=== PATIENT | female | born 1990 | race Caucasian/White ===

== ENCOUNTER 2020-11-15 00:55 | Emergency (ER) | payer OTHER ==
[2020-11-15 01:54] LABS: BASOPHIL 0.6 % (0-2); EOSINOPHIL 2.8 % (0-5); HGB 9.8 g/dl (12.5-16.0); LYMPHOCYTE 29.2 % (15-48); MCH 23.7 pg (25.0-31.0); MCHC 30.6 g/dL (32.0-36.0); MCV 77.5 fL (78.0-100.0); MONOCYTE 7.6 % (0-12); MPV 8.9 fL (6.0-9.5); NEUTROPHIL 59.4 % (41-80); NRBC 0; PLT 298 K/uL (150-400); RBC 4.13 M/uL (4.20-5.40); RDW 15.2 % (11.5-14.0); WBC 5.4 K/uL (4.0-10.5)
[2020-11-15 02:10] LABS: ALBUMIN 3.9 g/dL (3.4-5.0); ALKALINE PHOSHATASE 56 U/L (46-116); ALT 17 U/L (14-59); AST 15 U/L (15-37); BILIRUBIN - TOTAL 0.3 mg/dL (0.2-1.0); BUN 14 mg/dL (7-18); BUN/CREAT RATIO (CALC) 16.1 RATIO; CHLORIDE 103 mmol/L (98-107); CO2 (BICARBONATE) 28 mmol/L (21-32); CREATININE 0.87 mg/dL (0.51-0.95); GLOBULIN (CALCULATION) 3.7 g/dL; GLUCOSE 92 mg/dL (74-106); POTASSIUM 3.5 mmol/L (3.5-5.1); TOTAL PROTEIN 7.6 g/dL (6.4-8.2)
[2020-11-15 02:43] LABS: BILIRUBIN NEGATIVE (NEGATIVE); BLOOD NEGATIVE Ery/uL (NEGATIVE); CLARITY CLEAR (CLEAR); COLOR YELLOW (YELLOW); GLUCOSE (U) NORMAL (NORMAL); LEUKOCYTES NEGATIVE Leu/uL (NEGATIVE); NITRITE NEGATIVE (NEGATIVE); PROTEIN NEGATIVE (NEGATIVE); SPECIFIC GRAVITY 1.025 (1.001-1.030); UROBILINOGEN 0.2 mg/dL (0.2-1.0)
[2020-11-15 02:46] LABS: AMPHETAMINES POSITIVE (NEGATIVE); BARBITURATES NEGATIVE (NEGATIVE); ECSTASY (MDMA) POSITIVE (NEGATIVE); MARIJUANA (THC) NEGATIVE (NEGATIVE); METHADONE NEGATIVE (NEGATIVE); OPIATES NEGATIVE (NEGATIVE); OXYCODONE NEGATIVE (NEGATIVE)
[2020-11-15 05:49] LABS: CORONAVIRUS 2019 SARS-COV-2 NEGATIVE (NEGATIVE); INFLUENZA A NAA NEGATIVE (NEGATIVE)
== END 2020-11-15 09:55 ==
LOC: FER 00:55
PROVIDERS: Emergency Medicine
DX: F23 Brief psychotic disorder (principal); F43.10 Post-traumatic stress disorder, unspecified; I10 Essential (primary) hypertension; Z88.0 Allergy status to penicillin; Z20.822 Contact with and (suspected) exposure to COVID-19
CPT/HCPCS: 36415; 80053; 80305; 81003; 85025; 99285; G0480; U0002

== ENCOUNTER → 2022-05-03 | Day surgery (SDC) | payer OTHER ==
[~2022-05-03] VITALS: Ht 160 cm; Wt 81.6 kg
[~2022-05-03] MED LIST: CLINDAMYCIN 15150 MG PO; DAILY VALUE1 EACH PO; METOPROLOL SUCC25 MG PO; MOTRIN600 MG PO; TERBINAFINE HC250 MG PO
[2022-05-03 07:46] LABS: AMPHETAMINES NEGATIVE (NEGATIVE); BARBITURATES NEGATIVE (NEGATIVE); ECSTASY (MDMA) NEGATIVE (NEGATIVE); MARIJUANA (THC) NEGATIVE (NEGATIVE); METHADONE NEGATIVE (NEGATIVE); OPIATES NEGATIVE (NEGATIVE); OXYCODONE NEGATIVE (NEGATIVE)
[2022-05-03 07:49] LABS: HCG (URINE) SCREEN NEGATIVE (NEGATIVE)
== END | disposition home or self-care (01) ==
LOC: FAS 07:28
PROVIDERS: Oral & Maxillofacial Surgery
DX: K02.9 Dental caries, unspecified (principal); K04.7 Periapical abscess without sinus; Z53.9 Procedure and treatment not carried out, unspecified reason; I10 Essential (primary) hypertension; Z88.0 Allergy status to penicillin; Z91.040 Latex allergy status
CPT/HCPCS: 80305; 84703; J1100; J1885; J2405; J2704; J3010; J7120